=== PATIENT | female | born 1960 | race Caucasian/White ===

== ENCOUNTER → 2019-11-30 | Outpatient (CLI) | payer MEDICARE, MEDICAID ==
[~2019-11-30] MED LIST: CARB100 PO; LEVO50TA4 PO
== END | disposition home or self-care (01) ==
LOC: RADMN 09:39
PROVIDERS: ATTEND Internal Medicine
DX: R13.10 Dysphagia, unspecified (principal)
CPT/HCPCS: 74230; 92611